=== PATIENT | male | born 1975 | race Caucasian/White ===

== ENCOUNTER 2021-09-19 09:49 | Inpatient (IN) | payer BC, SELFPAY ==
[2021-09-19] VITALS (11 sets, daily range): BP systolic 114–151; BP diastolic 67–87; PULSE 84–107; RESP 14–20; TEMP 36.1–37.3; O2SAT 95–99; BMI 24.4
--- NOTE | ~2021-09-19 | CT_ITS ---
EXAMINATION: CT ABDOMEN AND PELVIS WITH CONTRAST CLINICAL INFORMATION: Right lower quadrant pain COMPARISON: None TECHNIQUE: Multidetector volumetric images were obtained from the superior aspect of the liver through the pubic symphysis following administration 85 mL of Omnipaque 350 intravenous contrast. Sagittal and coronal reformatted images were obtained on the technologist's workstation. Oral contrast: No This CT examination was performed using dose optimization techniques as appropriate, variously including the following: *Automated exposure control *Adjustment of mA and/or kV according to patient size (this includes techniques or standardized protocols for targeted exams where dose is matched to indication/reason for exam; i.e. extremities or head) *Use of iterative reconstruction technique DLP: 955 mGy-cm FINDINGS: LUNG BASES: The visualized lung bases are unremarkable. LIVER, GALLBLADDER, AND BILIARY TREE: The liver is normal in size, shape, and attenuation. No focal hepatic lesion or biliary ductal dilatation is present. The gallbladder is unremarkable with no evidence of radiopaque gallstones, gallbladder wall thickening, or obvious pericholecystic inflammatory changes. PANCREAS: Unremarkable. SPLEEN: Unremarkable. ADRENAL GLANDS: Unremarkable. KIDNEYS AND URETERS: The kidneys are normal in size, shape, and attenuation. No hydronephrosis, hydroureter, or calculi seen. No perinephric stranding. BLADDER: Unremarkable. GASTROINTESTINAL TRACT: The stomach and proximal small bowel are normal in caliber. There is mild wall thickening of the terminal ileum. The appendix is enlarged measuring up to 1.2 cm. There is wall thickening of the appendix and surrounding inflammatory changes. No fluid collection/abscess. The colon is normal in caliber. Colonic diverticulosis is noted. ABDOMINAL WALL: Small fat-containing umbilical hernia. LYMPH NODES: Multiple right lower quadrant mesenteric lymph nodes. VASCULAR: Unremarkable. PELVIC VISCERA: Unremarkable. OSSEOUS STRUCTURES: Unremarkable. CT/CT abdomen pelvis w con IMPRESSION: Acute appendicitis. No fluid collections/abscesses. Fleischner guidelines were followed. Discussed with HODAN Duggan at 1:45pm on 09/19/21.
--- NOTE | 2021-09-19 11:09 | ED_ITS ---
HPI - General Adult General Chief complaint: Abdominal Pain Stated complaint: abd pain Time Seen by Provider: 09/19/21 11:09 Source: patient Mode of arrival: ambulatory Limitations: no limitations History of Present Illness HPI narrative: 46-year-old healthy male is here today for complaining of right lower quadrant pain and tenderness. Patient reports that he had this pain for almost a year on and off. Usually he reports that he has the pain in the right lower quadrant every couple months for a day or 2 and the pain goes away. There is no nausea, vomiting. Associated symptoms are to constipation reason and straining. No diarrhea. Patient denies any dysphagia, right dyspepsia or odynophagia. Denies any melena, hematochezia, unintentional weight loss or ribbon like stools. Patient denies any family history of IBS or IBD. Patient denies any abdominal surgeries. States that he went to urgent care this morning and urine test showed blood. Patient denies any urinary pain, burning. No fever or chills. Pain does not radiate. Patient has no flank pain. Patient denies any CP, PND, presyncope, syncope, palpitations, SOB with or without exertion. Patient denies any other GI or cardiac concerning symptoms. Onset (ago): day(s) (2) Location: abdomen Radiation: non-radiation Severity: moderate Severity scale (1-10): 9 Quality: sharp Pain Consistency: intermittent Relieving factors: none Associated symptoms: denies other symptoms Treatments prior to arrival: none Related Data Home Medications Medication Instructions Recorded Confirmed No Known Home Meds 09/19/21 09/19/21 Allergies Allergy/AdvReac Type Severity Reaction Status Date / Time No Known Allergies Allergy Unverified 03/20/20 18:19 Review of Systems Review of Systems: Constitutional : No Weight loss, No Fever, No Chills, No Night Sweats, No Fatigue, No Malaise ENT/Mouth : No Hearing loss, No Ear Pain, No Nasal Congestion, No Sinus Pain, No Hoarseness, No sore throat, No Rhinorrhea, No Swallowing Difficulty Eyes: No Eye Pain, No Swelling, No Redness, No Foreign Body, No Discharge, No Vision Changes Cardiovascular : No Chest Pain, No SOB, No Dyspnea on Exertion, No Orthopnea, No Edema, No Palpitations Respiratory : No Cough, No Sputum, No Wheezing, No Smoke Exposure, No Dyspnea Gastrointestinal : No Nausea, No Vomiting, No Diarrhea, Constipation, RLQ abdominal Pain, No Hematochezia, No Melena Genitourinary : no irregular bleeding, No Dysuria, No Urinary Frequency, No Hematuria, No Urinary Incontinence, No Urgency, No Flank Pain, No Urinary Flow Changes, No Hesitancy Musculoskeletal : No joint pain, No Myalgias, No Joint Swelling Skin : No Skin Lesions, No rash Neuro : No Weakness, No Numbness, No Paresthesias, No Loss of Consciousness, No Dizziness, No Headache Psych : No Anxiety/Panic, No Depression, No SI/HI/AH/VH, No Social Issues, Yes all other systems are reviewed and are negative [facility] Past Medical History Medical History No known health problems Social History Social History Advance Directives: Yes Advance Directives Information Provided: Yes Advance Directives on File: No Physical Exam ED Vital Signs: Vital Signs - 24 hr 09/19/21 09:53 09/19/21 11:13 09/19/21 11:55 Temperature 98.6 F Pulse Rate 107 H 96 Respiratory Rate 20 14 14 Blood Pressure 151/86 H 128/83 Pulse Oximetry 96 98 BMI result Body Mass Index 24.4 Const General: cooperative, healthy appearing, alert, awake, Physically active and in distress Nutritional Appearance: average body habitus and well nourished Orientation/consciousness: patient oriented x3 Limitations: no limitations HENMT Head: Yes normal to inspection, Yes normocephalic and Yes atraumatic Mouth: Normal oral and palatal mucosa present, tongue normal and oropharynx normal Neck Neck: Yes normal visual inspection, Yes full ROM and Yes no lymphadenopathy Thyroid: Thyroid normal Resp Effort & Inspection: normal respiratory effort and able to speak in complete sentences Auscultation: clear to auscultation bilaterally Cardio Rate: regular rate Rhythm: regular rhythm Heart sounds: S1 normal heart sound present, S2 normal heart sound present, no gallops and no murmurs Peripheral pulses: Peripheral pulses 2+ throughout GI Inspection: Yes normal to inspection and No distended Palpation (GI): Soft to palpation, Tenderness to palpation present (GI) (RLQ) and Guarding due to palpation present (GI) (RLQ) Percussion: Yes normal to percussion (Tenderness to RLQ) Auscultation: Hyperactive bowel sounds present Rectal Exam - Male: Yes deferred General: Yes no CVA tenderness Back/Spine/Pelvis Back: no CVA tenderness Cervical Spine: normal cervical lordosis Thoracic/Lumbar Spine: thoracic and lumbar spine normal to inspection Neuro General: patient oriented x3 Psych Appearance: grossly normal Speech and movement: Normal speech and movement present Affect: normal affect Attitude: cooperative Thought process: Normal thought process present Thought content: Normal thought content present Insight: Good insight present (Psych) Course Course Course Narrative: 46-year-old male is here today for right lower quadrant pain. Patient went to urgent care and was told that he had blood in his urine. Patient denies any urinary symptoms. Denies any flank pain. No nausea vomiting. Right lower quadrant pain and is persistent and getting worse to right lower quadrant. Patient reports that he had this pain on and off for almost a year. Her patient states that usually the pain goes away after a day or 2. Patient reports that symptom associated with his pain is constipation, hard stools without any esteban jackie, hematochezia, unintentional weight loss or ribbon like stools. Patient denies any dyspepsia, dysphagia. Right lower quadrant tenderness. Will do is CBC, CMP, urinalysis is. Will order CT scan with IV contrast. Differentials are appendicitis, colitis, diverticulitis, severe constipation. Will give him morphine for comfort. Patient denies any nausea. Discussed with patient proposed treatment. Patient is agreeable. Reevaluation(s) Reevaluation #1: WBC 13.1, normal H&H, normal liver enzymes, mildly elevated total bilirubin, patient continues to have right lower quadrant pain, tenderness. Will order additional morphine 4 mg. Patient awaiting to go to CT scan. Awaiting urine sample. Reevaluation #2: Spoke with radiologist at [facility]. Patient has acute appendicitis without any fluid collection or abscesses. Message placed to on-call surgeon Dr. Muse patient will be admitted to surgery. Patient continues with pain 2nd dose of morphine given to patient. Will give him 2 g of ceftriaxone for IV. Reevaluation #3: Surgeon is here to see the patient, calling the OR team. Patient will go to surgery Medical Decision Making Lab Data Result diagrams: 09/19/21 11:47 09/19/21 11:47 Labs: Lab Results 09/19/21 09/19/21 09/19/21 Range/Units 11:47 11:47 13:23 WBC 13.1 H (4.8-10.8) X10*3/uL RBC 5.11 (4.60-5.80) X10*6/uL Hgb 15.5 (14.0-18.0) g/dl Hct 45.3 (42.0-52.0) % MCV 88.6 (80.0-98.0) fL MCH 30.3 (27.0-33.0) pg MCHC 34.2 (31.0-36.0) g/dl RDW 12.8 (11.0-16.0) % Plt Count 267 (160-400) X10*3/uL MPV 9.1 L (9.4-12.4) fL Immature Gran % (Auto) 0.3 (0.0-0.4) % Neut % (Auto) 81.3 H (45-73) % Lymph % (Auto) 10.6 L (20-40) % [place] % (Auto) 7.4 (2-11) % Eos % (Auto) 0.2 (0-4) % Baso % (Auto) 0.2 (0-2) % Lymph # (Auto) 1.4 (1.2-4.9) X10*3/uL [place] # (Auto) 1.0 (0.1-1.2) X10*3/uL Eos # (Auto) 0.0 (0.0-0.4) X10*3/uL Baso # (Auto) 0.0 (0.0-0.2) X10*3/uL Abs Immat Gran (auto) 0.04 H (0.00-0.03) X10*3/uL Absolute Neuts (auto) 10.7 H (2.0-8.3) x10*3/uL Absolute Nucleated RBC 0.000 (0.0-0.012) X10*3/uL Nucleated RBC % (auto) 0.0 (0.0-0.2) /100WBC Sodium 138 (135-145) mmol/L Potassium 3.9 (3.3-5.1) mmol/L Chloride 101 (96-108) mmol/L Carbon Dioxide 26 (22-29) mmol/L Anion Gap 15 (12-20) BUN 12 (9-16) mg/dL Creatinine 1.00 (0.5-1.4) mg/dL Estim Creat Clear Calc 99.3 Estimated GFR > 60 Random Glucose 110 (60-115) mg/dL Calcium 9.8 (8.4-10.2) mg/dL Total Bilirubin 1.6 H (0.0-1.0) mg/dL AST 14 (5-37) U/L ALT 14 (0-40) U/L Alkaline Phosphatase 53 (39-117) U/L Total Protein 6.6 (6.5-8.0) g/dL Albumin 4.3 (3.5-5.0) g/dL Urine Color YELLOW Urine Appearance CLEAR Urine pH 5.5 (5.0-8.0) Ur Specific [place] 1.015 (1.005-1.025) Urine Protein TRACE (NEG-TRACE) MG/DL Urine Glucose (UA) NEG (NEG) MG/DL Urine Ketones 15 (NEG) MG/DL Urine Blood TRACE (NEG) Urine Nitrite NEG (NEG) Ur Leukocyte Esterase NEG (NEG) Urine RBC 1-4 (0) /HPF Urine WBC 0 (0-4) /HPF Ur Squamous Epith Cells 1+ /LPF Urine Bacteria NONE /LPF Urine Mucus TRACE /LPF Imaging Data CT scan - abdomen: Attestation: I personally reviewed and interpreted this imaging study as follows: Radiologist's impression: FINDINGS: LUNG BASES: The visualized lung bases are unremarkable.? LIVER, GALLBLADDER, AND BILIARY TREE: The liver is normal in size, shape, and attenuation. No focal hepatic lesion or biliary ductal dilatation is present. The gallbladder is unremarkable with no evidence of radiopaque gallstones, gallbladder wall thickening, or obvious pericholecystic inflammatory changes.? PANCREAS: Unremarkable.? SPLEEN: Unremarkable.? ADRENAL GLANDS: Unremarkable.? KIDNEYS AND URETERS: The kidneys are normal in size, shape, and attenuation. No hydronephrosis, hydroureter, or calculi seen. No perinephric stranding. ? BLADDER: Unremarkable.? GASTROINTESTINAL TRACT: The stomach and proximal small bowel are normal in caliber. There is mild wall thickening of the terminal ileum. The appendix is enlarged measuring up to 1.2 cm. There is wall thickening of the appendix and surrounding inflammatory changes. No fluid collection/abscess. The colon is normal in caliber. Colonic diverticulosis is noted.? ABDOMINAL WALL: Small fat-containing umbilical hernia.? LYMPH NODES: Multiple right lower quadrant mesenteric lymph nodes. VASCULAR: Unremarkable. PELVIC VISCERA: Unremarkable.? OSSEOUS STRUCTURES: Unremarkable.? Discharge Plan Discharge Clinical Impression: Appendicitis Patient Disposition: Admitted As Inpatient Interventions: Admission Worksheet (ED) Last Done: 09/19/21 15:22 Discharge Date/Time: 09/19/21 16:01
[2021-09-19 11:54] LABS: MANUAL DIFF FLAG NO
[2021-09-19] MEDS: Morphine Sulfate 4 MG/ML CARTRIDGE IVPUSH (11:55)
[2021-09-19] MEDS: 0.9 % Sodium Chloride 1,000 ML 999 ML IV (11:55)
[2021-09-19] MEDS: ondansetron HCL 4 MG/2 ML VIAL IVPUSH ×2 (11:55→17:48)
[2021-09-19] MEDS: Morphine Sulfate 2 MG/ML CARTRIDGE IVPUSH (11:55)
[2021-09-19 11:56] LABS: Basophils Percent Auto 0.2 % (0-2); Eosinophils Percent Auto 0.2 % (0-4); Hematocrit 45.3 % (42.0-52.0); Hemoglobin 15.5 g/dl (14.0-18.0); Imm Gran Abs Auto 0.04 X10*3/uL (0.00-0.03); Imm Gran Pct Auto 0.3 % (0.0-0.4); Lymphocytes Absolute Auto 1.4 X10*3/uL (1.2-4.9); Lymphocytes Percent Auto 10.6 % (20-40); Mean Corpuscular HGB Conc 34.2 g/dl (31.0-36.0); Mean Corpuscular Hemoglobin 30.3 pg (27.0-33.0); Mean Corpuscular Volume 88.6 fL (80.0-98.0); Mean Platelet Volume 9.1 fL (9.4-12.4); Monocytes Percent Auto 7.4 % (2-11); Neutrophils Absolute Auto 10.7 x10*3/uL (2.0-8.3); Neutrophils Percent Auto 81.3 % (45-73); Platelet Count 267 X10*3/uL (160-400); Red Blood Count 5.11 X10*6/uL (4.60-5.80); Red Cell Distribution Width 12.8 % (11.0-16.0); White Blood Count 13.1 X10*3/uL (4.8-10.8)
[2021-09-19 12:16] LABS: Alanine Aminotransferase 14 U/L (0-40); Albumin Level 4.3 g/dL (3.5-5.0); Alkaline Phosphatase 53 U/L (39-117); Anion Gap 15 (12-20); Aspartate Amino Transferase 14 U/L (5-37); Bilirubin Total 1.6 mg/dL (0.0-1.0); Blood Urea Nitrogen 12 mg/dL (9-16); Calcium 9.8 mg/dL (8.4-10.2); Carbon Dioxide 26 mmol/L (22-29); Chloride 101 mmol/L (96-108); Creatinine Clr Calc Pharmacy 99.3; Estimated Glomerular Filt Rate > 60; Glucose Random 110 mg/dL (60-115); Potassium 3.9 mmol/L (3.3-5.1); Sodium 138 mmol/L (135-145); Total Protein 6.6 g/dL (6.5-8.0)
[2021-09-19] MEDS: iohexoL 350 MG/ML 100 ML INFUS..BTL IV (13:21)
[2021-09-19 13:32] LABS: Appearance Urine CLEAR; Color Urine YELLOW; Glucose Urine UA NEG (NEG); Leukocyte Esterase Urine NEG (NEG); Nitrite Urine NEG (NEG); PH 5.5 (5.0-8.0); Specific Gravity - Urine 1.015 (1.005-1.025); UACC Culture Trigger NO; Urine Blood TRACE (NEG); Urine Ketones 15 MG/DL (NEG); Urine Protein TRACE MG/DL (NEG-TRACE)
[2021-09-19 13:40] LABS: Squamous Epithelial Cell Urine 1+ /LPF; WBC Urine 0 /HPF (0-4)
[2021-09-19 13:41] LABS: Mucus Urine TRACE /LPF
[2021-09-19] MEDS: cefTRIAXone sodium 2 GM in 0.9 % Sodium Chloride 50 ML IV (14:13)
--- NOTE | 2021-09-19 14:28 | P.HPGS_ITS ---
History of Present Illness History of Present Illness Date of Service: 09/19/21 Chief complaint: abd pain Narrative: Javi Robles is a 46 year old male who comes in with a 1-2 day history of pain settling into his right lower quadrant area. He has been having pain on and off for the last months to may be a year where the abdominal pain start soft generalized maybe in the left upper quadrant umbilical area then and up in the right lower quadrant but it gets better. This time it did not get better. The pain worsened and so he came to the ER. He denies any nausea or vomiting any fevers or chills. No unusual contacts no strain G diet. Denies any other lower GI symptoms. Here workup revealed elevated white count and CT scan consistent with acute dependence side is. Review of Systems Review of Systems: Yes all other systems are reviewed and are negative PMFSH Past Medical History Medical History No known health problems Social History Social History Advance Directives: Yes Advance Directives Information Provided: Yes Advance Directives on File: No Meds Allergies Allergy/AdvReac Type Severity Reaction Status Date / Time No Known Allergies Allergy Unverified 03/20/20 18:19 Active Medications: Current Medications Ceftriaxone Sodium 2 gm/ (Sodium Chloride) 50 mls @ 100 mls/hr IV ONCE ONE Stop: 09/19/21 14:31 Last Admin: 09/19/21 14:13 Dose: 100 mls/hr Documented by: Pharmacy Consult (Consult Rx Perform Med Rec) 1 each MISCELLANE ONCE PRN PRN Reason: Consult order Physical Exam Vital Signs: Vital Signs: Last Vital Signs Temp 98.6 F 09/19/21 09:53 Pulse 96 09/19/21 11:13 Resp 14 09/19/21 11:55 BP 128/83 09/19/21 11:13 Pulse Ox 98 09/19/21 11:13 BMI result Body Mass Index 24.4 Const: General: cooperative, healthy appearing and comfortable Orientation /consciousness: oriented to person, oriented to place and oriented to time HENMT: Head: Yes normal to inspection Resp: Effort & Inspection: normal respiratory effort Auscultation: clear to auscultation bilaterally Cardio: Rate: regular rate Rhythm: regular rhythm Heart sounds: S1 normal heart sound present and S2 normal heart sound present GI: Other: abdomen soft nondistended small umbilical hernia, tender rlq with guarding Skin: Lesions: no lesions Rashes: no rashes Neuro: General: oriented to person, oriented to place and oriented to time Cranial nerves: Yes CN's II-XII intact bilaterally Psych: Appearance: grossly normal Mental Status: mental status grossly normal Affect: normal affect Results Results Labs: Short CBC 09/19/21 Range/Units 11:47 WBC 13.1 H (4.8-10.8) X10*3/uL Hgb 15.5 (14.0-18.0) g/dl Hct 45.3 (42.0-52.0) % Plt Count 267 (160-400) X10*3/uL BMP 09/19/21 11:47 Sodium 138 Potassium 3.9 Chloride 101 Carbon Dioxide 26 BUN 12 Creatinine 1.00 Calcium 9.8 Liver Function 09/19/21 Range/Units 11:47 Total Bilirubin 1.6 H (0.0-1.0) mg/dL AST 14 (5-37) U/L ALT 14 (0-40) U/L Alkaline Phosphatase 53 (39-117) U/L Albumin 4.3 (3.5-5.0) g/dL Urine 09/19/21 Range/Units 13:23 Urine Color YELLOW Urine Appearance CLEAR Urine pH 5.5 (5.0-8.0) Ur Specific [place] 1.015 (1.005-1.025) Urine Protein TRACE (NEG-TRACE) MG/DL Urine Glucose (UA) NEG (NEG) MG/DL Abdomen CT scan report/results: report reviewed and image reviewed Assessment and Plan (1) Acute appendicitis: Status: Acute Plan 46-year-old male with acute appendicitis - plan is to carry out laparoscopic appendecotmy - CT scan history blood work and physical exam consistent with this diagnosis. Risks and benefits were discussed with the patient including but not limited to bleeding infection possible open procedure possible bowel injury any wishes to proceed. Keep NPO IV fluids IV antibiotics Quality Stroke Does the patient have a stroke diagnosis?: No VTE Prior VTE?: No VTE Risk Level:: Surgical - low VTE Device Contraindication: N/A - Device Ordered VTE Drug Contraindication: Treatment Not Indicated Procedures Date of Service Date of Service: 09/19/21
--- NOTE | 2021-09-19 14:43 | PHA.MEDREC ---
Pharmacy Consult ? Medication Reconciliation Pharmacy has completed the medication reconciliation. Patient takes no medications at home. Rosa Isela Buck, EmaD
--- NOTE | 2021-09-19 14:46 | P.CONAN_ITS ---
COUNT INCLUDES THE [facility] Active Problems Active Problems: All Active Problems (Updated 09/19/21 @ 14:37 by Arianna Muse MD) Acute appendicitis (Acute) Past Medical History Medical History No known health problems Functional capacity: independent ambulation Family History Family history of problems with anesthesia: No Surgical History History of Problems with Anesthesia: No Social History Social History Advance Directives: Yes Advance Directives Information Provided: Yes Advance Directives on File: No Meds Allergies Allergy/AdvReac Type Severity Reaction Status Date / Time No Known Allergies Allergy Unverified 03/20/20 18:19 Active Medications: Current Medications Pharmacy Consult (Consult Rx Perform Med Rec) 1 each MISCELLANE ONCE PRN PRN Reason: Consult order Home Medications Medication Instructions Recorded Confirmed Last Taken Type No Known Home Meds 09/19/21 09/19/21 Unknown History Exam Exam Date and Time: September 19, 2021 1446 Height,Weight and Vital Signs: Height 5 ft 11 in Weight 79.379 kg Last Vital Signs Temp 98.6 F 09/19/21 09:53 Pulse 96 09/19/21 11:13 Resp 14 09/19/21 11:55 BP 128/83 09/19/21 11:13 Pulse Ox 98 09/19/21 11:13 Pertinent Lab Results Pertinent Lab Results: Laboratory Tests 09/19/21 09/19/21 09/19/21 11:47 11:47 13:23 WBC 13.1 H RBC 5.11 Hgb 15.5 Hct 45.3 MCV 88.6 MCH 30.3 MCHC 34.2 RDW 12.8 Plt Count 267 MPV 9.1 L Immature Gran % (Auto) 0.3 Neut % (Auto) 81.3 H Lymph % (Auto) 10.6 L [place] % (Auto) 7.4 Eos % (Auto) 0.2 Baso % (Auto) 0.2 Lymph # (Auto) 1.4 [place] # (Auto) 1.0 Eos # (Auto) 0.0 Baso # (Auto) 0.0 Abs Immat Gran (auto) 0.04 H Absolute Neuts (auto) 10.7 H Absolute Nucleated RBC 0.000 Nucleated RBC % (auto) 0.0 Sodium 138 Potassium 3.9 Chloride 101 Carbon Dioxide 26 Anion Gap 15 BUN 12 Creatinine 1.00 Estim Creat Clear Calc 99.3 Estimated GFR > 60 Random Glucose 110 Calcium 9.8 Total Bilirubin 1.6 H AST 14 ALT 14 Alkaline Phosphatase 53 Total Protein 6.6 Albumin 4.3 Urine Color YELLOW Urine Appearance CLEAR Urine pH 5.5 Ur Specific [place] 1.015 Urine Protein TRACE Urine Glucose (UA) NEG Urine Ketones 15 Urine Blood TRACE Urine Nitrite NEG Ur Leukocyte Esterase NEG Urine RBC 1-4 Urine WBC 0 Ur Squamous Epith Cells 1+ Urine Bacteria NONE Urine Mucus TRACE Airway Mallampati Class: II Neck ROM: Full Heart: RRR Lungs: CTA Assessment and Plan Final Anesthetic Review Family History of Problems with Anesthesia: No History of Problems with Anesthesia: No ASA Class: II Final Preanesthetic Review: Meds/Allgs Chart Reviewed, Consent Obtained/Reviewed and Anes Risks/Benef Reviewed Patient Risk: Low Procedure Risk: Low Anesthetic Plan Anesthetic Plan: GA Disposition: Standard PACU
[2021-09-19 15:45] LABS: COVID-19 Test Negative (Negative)
[2021-09-19] MEDS: 0.9 % Sodium Chloride 1,000 ML 100 ML IVCONT (19:38)
[2021-09-19] MEDS: Piperacillin Sodium/Tazobactam 3.375 GM in 0.9 % Sodium Chloride 50 ML IV (19:38)
[2021-09-19] MEDS: oxyCODONE HCl Immed Release 5 MG TABLET PO (21:57)
[2021-09-20] VITALS (8 sets, daily range): BP systolic 127–151; BP diastolic 74–88; PULSE 75–90; RESP 17–18; TEMP 36.3–37.1; O2SAT 95–98
[2021-09-20] MEDS: Piperacillin Sodium/Tazobactam 3.375 GM in 0.9 % Sodium Chloride 50 ML IV ×5 (01:08→22:55)
[2021-09-20] MEDS: Ketorolac Tromethamine 30 MG/ML VIAL IVPUSH (05:17)
[2021-09-20] MEDS: 0.9 % Sodium Chloride 1,000 ML 100 ML IVCONT (05:18)
[2021-09-20 06:21] LABS: MANUAL DIFF FLAG NO
[2021-09-20 06:28] LABS: Basophils Percent Auto 0.1 % (0-2); Hematocrit 38.3 % (42.0-52.0); Hemoglobin 13.1 g/dl (14.0-18.0); Imm Gran Abs Auto 0.04 X10*3/uL (0.00-0.03); Imm Gran Pct Auto 0.4 % (0.0-0.4); Lymphocytes Absolute Auto 1.3 X10*3/uL (1.2-4.9); Lymphocytes Percent Auto 12.1 % (20-40); Mean Corpuscular HGB Conc 34.2 g/dl (31.0-36.0); Mean Corpuscular Hemoglobin 30.5 pg (27.0-33.0); Mean Corpuscular Volume 89.3 fL (80.0-98.0); Mean Platelet Volume 9.5 fL (9.4-12.4); Monocytes Absolute Auto 0.8 X10*3/uL (0.1-1.2); Monocytes Percent Auto 7.2 % (2-11); Neutrophils Absolute Auto 8.6 x10*3/uL (2.0-8.3); Neutrophils Percent Auto 80.2 % (45-73); Platelet Count 262 X10*3/uL (160-400); Red Blood Count 4.29 X10*6/uL (4.60-5.80); Red Cell Distribution Width 12.8 % (11.0-16.0); White Blood Count 10.7 X10*3/uL (4.8-10.8)
--- NOTE | 2021-09-20 09:42 | MHC.CM.PN ---
PT REPORTS HE LIVES WITH HIS S/O AND IS INDEPENDENT WITH CARE PT DENIES USING OF DME OR HOME SERVICES PPT REPORTS HE HAS A HCP NAMING HIS GF, ELLEN, HIS AGENT. COPY REQUESTED PT DOES NOT HAVE A PCP BUT REPORTS HE IS IN THE PROCESS OF GETTING ONE PT REPORTS BEING COVID-19 VACCINATED WITH MODERNA X 3 DCP HOME NO SERVICES S/O TO TRANSPORT
--- NOTE | 2021-09-20 13:39 | P.PNGS_ITS ---
Subjective Subjective Date of Service: 09/20/21 Interval history: feeling well no issues leon po diet - serosang fluid from the russ drain Physical Exam Vital Signs: Vital Signs: Last Vital Signs Temp 98.1 F 09/20/21 07:30 Pulse 81 09/20/21 07:30 Resp 18 09/20/21 07:30 BP 151/81 H 09/20/21 07:30 Pulse Ox 98 09/20/21 07:30 BMI result Body Mass Index 24.4 GI: Other: abdo soft little distended russ drain intact Objective Data Active Medications Fentanyl (Fentanyl Citrate/Pf 100 Mcg/2 Ml Vial) 50 mcg IVPUSH Q5M PRN; Protocol PRN Reason: Pain, Severe (Pain Scale 7-10) Sodium Chloride (Ns) 1,000 mls @ 100 mls/hr IVCONT .Q10H [facility] Last Admin: 09/20/21 05:18 Dose: 100 mls/hr Documented by: JANNETTE Piperacillin Sod/Tazobactam (Sod 3.375 gm/ Sodium Chloride) 50 mls @ 100 mls/hr IV Q6H [facility] Last Admin: 09/20/21 11:56 Dose: 100 mls/hr Documented by: ANDREW Ketorolac Tromethamine (Ketorolac Tromethamine 30 Mg/Ml Vial) 30 mg IVPUSH Q6H PRN PRN Reason: Pain, Mild (Pain Scale 1-3) Stop: 09/24/21 17:44 Last Admin: 09/20/21 05:17 Dose: 30 mg Documented by: JANNETTE Pharmacy Consult (Consult Rx Perform Med Rec) 1 each MISCELLANE ONCE PRN PRN Reason: Consult order Sodium Chloride (0.9 % Sodium Chloride Flush 3 Ml Syringe) 3 ml IVFLUSH QSHIFT [facility] Last Admin: 09/20/21 09:47 Dose: Not Given Documented by: ROMMEL Non-Admin Reason: IV Running Labs CBC & Chem 7: 09/20/21 05:38 09/19/21 11:47 Labs: Laboratory Results - last 24 hr 09/19/21 09/19/21 09/20/21 13:23 15:17 05:38 MCV 89.3 MCH 30.5 MCHC 34.2 RDW 12.8 Plt Count 262 MPV 9.5 Immature Gran % (Auto) 0.4 Neut % (Auto) 80.2 H Lymph % (Auto) 12.1 L [place] % (Auto) 7.2 Eos % (Auto) 0.0 Baso % (Auto) 0.1 Lymph # (Auto) 1.3 [place] # (Auto) 0.8 Eos # (Auto) 0.0 Baso # (Auto) 0.0 Abs Immat Gran (auto) 0.04 H Absolute Neuts (auto) 8.6 H Absolute Nucleated RBC 0.000 Nucleated RBC % (auto) 0.0 Urine RBC 1-4 Urine WBC 0 Ur Squamous Epith Cells 1+ Urine Bacteria NONE Urine Mucus TRACE COVID-19 (NUSRAT) Negative COVID-19 Clin Com See Note Procedures Date of Service Date of Service: 09/20/21 Progress Note: A&P Assessment and plan (1) Acute appendicitis: Status: Acute Assessment and Plan: pod#1 s/p lap appy doing well - his appendix was very inflamed and stuck to the cecum adn ascending colon in a retrocecal fashion. staple line of the appendix on cecum with area of induration - russ drain tucked under and near staple site - no evidence of leak etc and i believe he should do fine but keeping for another day and observing as diet increases is prefered. pt understand and agrees with the plan Fall Risk Details Current Medications: Current Medications Fentanyl (Fentanyl Citrate/Pf 100 Mcg/2 Ml Vial) 50 mcg IVPUSH Q5M PRN; Protocol PRN Reason: Pain, Severe (Pain Scale 7-10) Sodium Chloride (Ns) 1,000 mls @ 100 mls/hr IVCONT .Q10H [facility] Last Admin: 09/20/21 05:18 Dose: 100 mls/hr Documented by: Piperacillin Sod/Tazobactam (Sod 3.375 gm/ Sodium Chloride) 50 mls @ 100 mls/hr IV Q6H [facility] Last Admin: 09/20/21 11:56 Dose: 100 mls/hr Documented by: Ketorolac Tromethamine (Ketorolac Tromethamine 30 Mg/Ml Vial) 30 mg IVPUSH Q6H PRN PRN Reason: Pain, Mild (Pain Scale 1-3) Stop: 09/24/21 17:44 Last Admin: 09/20/21 05:17 Dose: 30 mg Documented by: Pharmacy Consult (Consult Rx Perform Med Rec) 1 each MISCELLANE ONCE PRN PRN Reason: Consult order Sodium Chloride (0.9 % Sodium Chloride Flush 3 Ml Syringe) 3 ml IVFLUSH QSHIFT [facility] Last Admin: 09/20/21 09:47 Dose: Not Given Documented by: Time Spent With Patient Time: Total time spent is greater than 50% in coordination of care (as documented) at patient's floor/unit and/or counseling patient: Time with patient: 15 - 24 minutes Quality Stroke Does the patient have a stroke diagnosis?: No VTE Prior VTE?: No VTE Risk Level:: Surgical - low VTE Device Contraindication: N/A - Device Ordered VTE Drug Contraindication: Treatment Not Indicated
[2021-09-20] MEDS: 0.9 % Sodium Chloride Flush 3 ML SYRINGE IVFLUSH ×2 (17:22→22:55)
[2021-09-20] MEDS: Zolpidem Tartrate 5 MG TABLET PO (22:55)
[2021-09-21] MEDS: Piperacillin Sodium/Tazobactam 3.375 GM in 0.9 % Sodium Chloride 50 ML IV (05:22)
[2021-09-21 06:58] VITALS: BP 156/89; PULSE 100; RESP 18; TEMP 36.3; O2SAT 97
--- NOTE | 2021-09-21 08:09 | P.PNGS_ITS ---
Subjective Subjective Date of Service: 09/21/21 Interval history: feels well tolerating diet good flatus says he feels ready to go home Physical Exam Vital Signs: Vital Signs: Last Vital Signs Temp 97.3 F 09/21/21 06:58 Pulse 100 09/21/21 06:58 Resp 18 09/21/21 06:58 BP 156/89 H 09/21/21 06:58 Pulse Ox 97 09/21/21 06:58 BMI result Body Mass Index 24.4 Const: General: comfortable and no acute distress Resp: Effort & Inspection: normal respiratory effort Cardio: Rate: regular rate GI: Other: dressings dry, ROB drain -scanty serosanguinous output Palpation (GI): Soft to palpation, not firm and no guarding Objective Data Active Medications Fentanyl (Fentanyl Citrate/Pf 100 Mcg/2 Ml Vial) 50 mcg IVPUSH Q5M PRN; P rotocol PRN Reason: Pain, Severe (Pain Scale 7-10) Piperacillin Sod/Tazobactam (Sod 3.375 gm/ Sodium Chloride) 50 mls @ 100 mls/hr IV Q6H [facility] Last Infusion: 09/21/21 05:59 Dose: 0 mls/hr Documented by: JANNETTE Ketorolac Tromethamine (Ketorolac Tromethamine 30 Mg/Ml Vial) 30 mg IVPUSH Q6H PRN PRN Reason: Pain, Mild (Pain Scale 1-3) Stop: 09/24/21 17:44 Last Admin: 09/20/21 05:17 Dose: 30 mg Documented by: JANNETTE Pharmacy Consult (Consult Rx Perform Med Rec) 1 each MISCELLANE ONCE PRN PRN Reason: Consult order Sodium Chloride (0.9 % Sodium Chloride Flush 3 Ml Syringe) 3 ml IVFLUSH QSHIFT [facility] Last Admin: 09/20/21 22:55 Dose: 3 ml Documented by: JANNETTE Zolpidem Tartrate (Zolpidem Tartrate 5 Mg Tablet) 5 mg PO BEDTIME [facility] Last Admin: 09/20/21 22:55 Dose: 5 mg Documented by: JANNETTE Labs CBC & Chem 7: 09/20/21 05:38 09/19/21 11:47 Procedures Date of Service Date of Service: 09/21/21 Progress Note: A&P Assessment and plan (1) Acute appendicitis: Status: Acute Assessment and Plan: doing very well postop abd soft and benign good GI function ok to dc home with ROB drain dc instructions explained will see in office for ffup, remove drain Fall Risk Details Current Medications: Current Medications Fentanyl (Fentanyl Citrate/Pf 100 Mcg/2 Ml Vial) 50 mcg IVPUSH Q5M PRN; Protocol PRN Reason: Pain, Severe (Pain Scale 7-10) Piperacillin Sod/Tazobactam (Sod 3.375 gm/ Sodium Chloride) 50 mls @ 100 mls/hr IV Q6H [facility] Last Infusion: 09/21/21 05:59 Dose: Infused Documented by: Ketorolac Tromethamine (Ketorolac Tromethamine 30 Mg/Ml Vial) 30 mg IVPUSH Q6H PRN PRN Reason: Pain, Mild (Pain Scale 1-3) Stop: 09/24/21 17:44 Last Admin: 09/20/21 05:17 Dose: 30 mg Documented by: Pharmacy Consult (Consult Rx Perform Med Rec) 1 each MISCELLANE ONCE PRN PRN Reason: Consult order Sodium Chloride (0.9 % Sodium Chloride Flush 3 Ml Syringe) 3 ml IVFLUSH QSHIFT [facility] Last Admin: 09/20/21 22:55 Dose: 3 ml Documented by: Zolpidem Tartrate (Zolpidem Tartrate 5 Mg Tablet) 5 mg PO BEDTIME [facility] Last Admin: 09/20/21 22:55 Dose: 5 mg Documented by: Time Spent With Patient Time: Total time spent is greater than 50% in coordination of care (as documented) at patient's floor/unit and/or counseling patient: Time with patient: 15 - 24 minutes Quality Stroke Does the patient have a stroke diagnosis?: No VTE Prior VTE?: No VTE Risk Level:: Surgical - low VTE Device Contraindication: N/A - Device Ordered VTE Drug Contraindication: Treatment Not Indicated
[2021-09-21] MEDS: 0.9 % Sodium Chloride Flush 3 ML SYRINGE IVFLUSH (08:39)
--- NOTE | 2021-09-21 11:09 | P.DS_ITS ---
DS: Providers Provider Date of Service: 09/21/21 Date of admission: 09/19/21 14:26 Primary care physician: Casi Physician Attending physician on admission: Arianna Muse Attending physician on discharge: Bravo Berkowitz DS: Diagnosis Discharge Diagnosis (1) Acute appendicitis: Status: Acute DS: Summary Hospital Course Hospital Course: BRIEF HPI: Javi Robles is a 46 year old male who comes in with a 1-2 day history of pain settling into his right lower quadrant area. He has been having pain on and off for the last months to may be a year where the abdominal pain start soft generalized maybe in the left upper quadrant umbilical area then and up in the right lower quadrant but it gets better. This time it did not get better. The pain worsened and so he came to the ER. He denies any nausea or vomiting any fevers or chills. No unusual contacts. Denies any other lower GI symptoms. Workup revealed elevated white count and CT scan consistent with acute appendicitis. HOSPITAL COURSE: He was admitted to the surgical service for further treatment of acute appendicitis. It was recommended to proceed with laparoscopic appendecotmy. He was kept NPO, on IV fluids and IV antibiotics. On 09/19/21, a laparoscopic appendectomy was performed by Dr. Muse without complication. The appendix was very inflamed and stuck to the cecum and ascending colon.?A ROB drain was left in place at the staple line. The patient tolerated the procedure well and was admitted for observation. He had an uncomplicated recovery course. On POD #1, he felt well. He was tolerating a solid diet without N/V, his pain was controlled. He was OOB without difficulty. His abdomen was benign with clean/intact dressings and appropriate post op tenderness. The ROB drain had serosanguineous output. Given the inflammat ory changes on the cecum at the staple line, he was kept one more day for observation. He continued to do well post op without any evidence of staple line leak. He felt ready for discharge. He was discharged to home on 09/21/21 in stable condition. He is to follow up with Dr. Berkowitz in office in 1 week. He was discharged to home with the ROB drain in place. Status at Discharge Functional status at discharge: independent ambulation Overall status at discharge: patient is progressing back to baseline Time Spent with Patient Time attestation: Total time spent providing and/or coordinating discharge services: Discharge coordination time: Greater than 30 minutes Quality: Stroke Does the patient have a stroke diagnosis?: No Physical Exam Vital Signs: Vital Signs: Last Vital Signs Temp 97.3 F 09/21/21 06:58 Pulse 100 09/21/21 06:58 Resp 18 09/21/21 06:58 BP 156/89 H 09/21/21 06:58 Pulse Ox 97 09/21/21 06:58 BMI result Body Mass Index 24.4 Const: General: comfortable and no acute distress Orientation/consciousness: patient oriented x3 Resp: Effort & Inspection: normal respiratory effort GI: Other: ROB with serosanguineous drainage Inspection: No distended and Yes incision (dressings c/d/i) Palpation (GI): Soft to palpation, Tenderness to palpation present (GI) (mild, incisional), no guarding and not rigid Skin: General skin exam: no rashes or lesions noted Neuro: General: patient oriented x3 DS: Data Data Completed and Pending Pending studies at discharge: Pending at discharge 09/19/21 16:50 Surgical [PTH] Routine Discharge Plan Discharge Patient Disposition: Home, Self-Care Discharge Diagnosis: acute appendicitis Referrals: Bravo Berkowitz MD [Physician] - 1 Week Physician,None [Primary Care Provider] - 1 Week Discharge Medications: New ibuprofen 600 mg tablet 600 mg PO Q6H PRN (Reason: pain) Qty: 30 0RF oxycodone-acetaminophen [Percocet] 5-325 mg tablet 1 tab PO Q4-6H PRN (Reason: pain, severe) Qty: 30 0RF Discharge Orders: Discharge Order (Routine); Ordered 09/21/21 Ordered By: Betty Ledbetter Diet: advance to usual diet Activity on Discharge: No heavy lifting Stand Alone Forms: Patient Portal Discharge page Activity Restrictions/Additional Instructions: If the incision area is tender, you may apply an ice pack for short intervals (No more than 20 minutes on, followed by at least 20 minutes off). Do not apply heat. Do not use creams, lotions, or topical antibiotics unless instructed to do so by your surgeon. These can cause infection or allergic reaction. OK to shower Okay to change dressings with Band-Aids No lifting more than 20 lb No strenuous activities Call the office for follow-up next week - with Dr. Berkowitz [phone] Call Your Doctor If: -Your temperature exceeds 101.5? F -You experience excessive pain or swelling -You have an unexpected reaction to medication -You have excessive bleeding -You experience continued vomiting/nausea -Your incision begins to separate -Your incision shows signs of infection such as increased redness, swelling, excessive pain, drainage (light blood or clear fluid is normal) or heat Care Plan Goals: control pain no lifting Health Concerns: postop pain Plan of Treatment: oral pain meds ffup in office to remove ROB rain Assessment: doing well postop Discharge Date/Time: 09/21/21 12:07
--- NOTE | 2021-09-21 13:02 | HO.POSTANES ---
Post Anesthesia Evaluation Post Anesthesia Evaluation Vital Signs: Vital Signs Temp Pulse Resp BP Pulse Ox 09/21/21 06:58 97.3 F 100 18 156/89 H 97 Anesthesia: General Endotracheal-GETA Mental Status: Awake Pain Control: Satisfactory Nausea/Vomiting: None Hydration: Adequate Anesthesia-Related Issues: No Anes. Related Issues
[2021-09-22 08:34] LABS: VBG Base Excess 2.3 mmol/L; VBG HCO3 26 mmol/L (22-26); VBG pCO2 38 mmHg; VBG pH 7.44 (7.32-7.43); VBG pO2 41 mmHg
--- NOTE | 2021-10-01 04:00 | OP_ITS ---
SURGEON: Arianna Muse MD INDICATIONS: Patient is a 46-year-old male who presented to the emergency room with right abdominal pain, elevate white count. CT scan showing findings consistent with acute appendicitis. PREOPERATIVE DIAGNOSIS: Acute appendicitis. POSTOPERATIVE DIAGNOSIS: Acute appendicitis. PROCEDURE PERFORMED: Laparoscopic appendectomy. ESTIMATED BLOOD LOSS: COMPLICATIONS: ANESTHESIA: ASSISTANTS: SPECIMENS: INTRAOPERATIVE FINDINGS: Acute appendicitis. DESCRIPTION OF PROCEDURE: Patient was brought to the operating room. Under Anesthesia guidance, he was intubated. He had compression stockings placed before and after received preoperative antibiotics. His abdomen was prepped and draped in standard surgical fashion. An infraumbilical incision was created after numbing up the area with 0.25% Marcaine with epinephrine. Dissection was carried down to the anterior abdominal wall fascia, which was grasped with Oralia and transected. [address] [place] trocar introduced. Pneumoperitoneum established with 15 mmHg. Two 5 mm ports were then placed under direct visualization, one in the suprapubic area and one in the left lower quadrant using local. Patient was positioned left side down and then the cecal area of the appendix was identified and turned out to be more retrocecal. It was carefully dissected out by mobilizing the cecal area laterally and eventually using the LigaSure to come across the mesenteric vein down to the base of the appendix where there was an inflammation still on the cecum. The Endo JATIN stapler was fired across here. Then the appendix removed from the peritoneal cavity. The area was suctioned and irrigated and carefully examined. The staple line looked fine, intact, and draining catheter in place and secured. At the end of the case, all sponge, instrument, needle counts were correct. Estimated blood loss was about 20 cc. Blood culture removed under direct visualization. Pursestring suture at the umbilicus was approximated, Monocryl interrupted subcuticular was used to approximate all the skin edges and Steri-Strips were placed. The drain coming out of the suprapubic area was secured with a suture. Specimen sent was the appendix. The patient returned stable to the recovery room. Arianna Muse MD SR/HIRAL / [id number]
== END 2021-09-21 12:07 | disposition home or self-care (01) | DRG 225 ==
LOC: HO.ED 15:35 → HO.S3 15:50
PROVIDERS: Nurse Practitioner Family; Admitting Provider Surgery; Emergency Provider Emergency Medicine Emergency Medical Services; Visit Provider Surgery
PROC: 0DTJ4ZZ Resection of Appendix, Percutaneous Endoscopic Approach (ICD-10-PCS; CPT 44970; principal; 2021-09-19 15:00)
DX: K35.80 Unspecified acute appendicitis (principal); Z20.822 Contact with and (suspected) exposure to COVID-19
CPT/HCPCS: 36415; 74177; 80053; 81001; 82803; 85025; 87635; 88304; 99024; 99285; J0131; J0696; J1100; J1885; J2250; J2270; J2405; J2543; J3010; Q9967

== ENCOUNTER → 2021-10-01 10:39 | Outpatient (BNVA) | payer BC, SELFPAY | PROVIDERS: Visit Provider Surgery | DX: Z13.89 Encounter for screening for other disorder (principal) ==

== ENCOUNTER 2021-11-06 11:34 | Outpatient (REF) | payer BC, SELFPAY ==
--- NOTE | ~2021-11-06 | XR_ITS ---
EXAMINATION: XR CHEST CLINICAL INFORMATION: Abnormal sputum COMPARISON: None TECHNIQUE: 2 views of the chest were obtained. FINDINGS: No significant abnormality is noted involving the heart, lungs, mediastinum, bony thorax or soft tissues. XR/XR chest 2V IMPRESSION: Unremarkable examination.
[2021-11-06 13:42] LABS: TSH reflex Free T4 0.92 uIU/mL (0.32-4.0); Vitamin D 25-OH Total 4.8 ng/mL (>30)
[2021-11-06 14:23] LABS: Vitamin B12 192 pg/mL (200-900)
[2021-11-08 23:51] LABS: TS Negative Control Passed; TS Panel A 0; TS Panel B 1; TS Positive Control Passed; TSpotTB Negative (Negative)
== END 2021-11-06 11:35 | disposition home or self-care (01) ==
LOC: HO.XRAY 11:34
PROVIDERS: PCP Nurse Practitioner Family; Visit Provider Nurse Practitioner Family
DX: R09.3 Abnormal sputum (principal); Z76.89 Persons encountering health services in other specified circumstances; Z13.29 Encounter for screening for other suspected endocrine disorder; Z12.5 Encounter for screening for malignant neoplasm of prostate
CPT/HCPCS: 36415; 71046; 82306; 82607; 82746; 84153; 84443; 86481

== ENCOUNTER 2024-06-23 17:15 | Emergency (ER) | payer BC, SELFPAY ==
[2024-06-23 17:38] VITALS: BP 142/96; PULSE 92; RESP 18; TEMP 36.4; O2SAT 99; BMI 25.8
--- NOTE | 2024-06-23 17:38 | ED_ITS ---
HPI - General Adult General Chief complaint: General Medical Stated complaint: HBP, Nausea and Fatigue Time Seen by Provider: 06/23/24 20:22 Source: patient, RN notes reviewed and old records reviewed Mode of arrival: ambulatory Limitations: no limitations History of Present Illness ED Provider: Jose E MEZA narrative: 49-year-old male presents for evaluation of ?high blood pressure and palpitations. ? Patient reports that just prior to arrival his heart was racing and he ?did not feel right. ? He checked his blood pressure and it was ?220/158. ? He denies any history of high blood pressure and he does not take any medications daily The patient did not have any chest pain. He reports a remote history of anxiety in his unsure if this was similar He denies any fevers, chills, cough, shortness of breath Currently he feels back to his baseline. He has no pain, palpitations or shortness of breath Related Data Previous Rx's ?Medication ?Instructions ?Recorded ibuprofen 600 mg tablet 600 mg PO Q6H PRN pain #30 tabs 09/21/21 cholecalciferol (vitamin D3) 50 50 mcg PO DAILY #90 tabs 11/13/21 mcg (2,000 unit) tablet cyanocobalamin (vitamin B-12) 1,000 mcg PO DAILY #90 caps 11/13/21 1,000 mcg capsule Allergies Allergy/AdvReac Type Severity Reaction Status Date / Time No Known Allergies Allergy Verified 06/23/24 17:39 Review of Systems 2 Constitutional: Constitutional: Denies body ache(s), Denies chills and Denies fever(s) Eyes: Eyes: Denies blurry vision ENT: Denies dysphagia, Denies vertigo and Denies dizziness Cardiovascular: Cardiovascular: Reports chest pain, Reports rapid heart rate, Reports palpitations and Denies dyspnea Respiratory: Respiratory: Denies cough and Denies dyspnea Gastrointestinal: Gastrointestinal: Denies abdominal pain, Denies dysphagia, Denies nausea and Denies vomiting Musculoskeletal: Musculoskeletal: Denies back pain Integumentary/Breasts: Skin/Breast: Denies rash Neurologic: Denies vertigo and Denies dizziness Psychiatric: Psychiatric: Denies anxiety Endocrine: Endocrine: Reports palpitations PMFSH Past Medical History Medical History (Updated 06/24/24 @ 00:00 by Background Daemon) No known health problems Surgical History (Updated 11/09/21 @ 09:53 by MICHAEL Kaplan) Status post laparoscopic appendectomy History of laparoscopic appendectomy Family History Family History Father CVA (cerebral vascular accident) Heart attack Mother No problems noted. Brother No problems noted. Brother No problems noted. Sister No problems noted. Social History Social History Household Members: Spouse Housing: Condominium Do you presently have visiting nurse or other home services: No Unable to assess alcohol history related to: Unknown Patient Tobacco Use Status: Never used Tobacco e-Cigarette/Vaping Use: Never Used Advance Directives Date on File: 09/19/21 service: No Current occupational status: employed Cognitive needs: No Hearing needs: No Vision needs: No Physical Exam ED Vital Signs: Vital Signs - 24 hr 06/23/24 17:38 06/23/24 20:46 06/23/24 20:47 Temperature 97.5 F 97.9 F 97.9 F Pulse Rate 92 69 69 Respiratory Rate 18 16 16 Blood Pressure 142/96 H 136/97 H 136/97 H Pulse Oximetry 99 98 98 Oxygen Delivery Method Room Air Room Air Room Air BMI result Body Mass Index 25.8 Const General: healthy appearing, comfortable, no acute distress, alert and awake Nutritional Appearance: well nourished Orientation/consciousness: patient oriented x3 HENMT Head: Yes normocephalic and Yes atraumatic Eyes Eyelids: Yes eyelids normal Conjunctivae: conjunctivae normal Sclerae: sclerae normal Corneas: corneas normal Pupils: Equal, round and reactive pupils present EOM: EOMs intact bilaterally Neck Neck: Yes full ROM Resp Effort & Inspection: normal respiratory effort, able to speak in complete sentences and not labored Cardio Rate: regular rate Rhythm: regular rhythm GI Inspection: No distended Palpation (GI): Soft to palpation, not firm, nontender, no guarding and not rigid Skin General skin exam: no rashes or lesions noted Neuro General: patient oriented x3 Cranial nerves: Yes Equal, round and reactive pupils present and Yes Bilaterally intact EOM present Cognition (Neuro): normal cognition Extrem Other: Moving all extremities well without any obvious deformities Course Course Course Narrative: This is a Rapid Medical Exam performed in triage by Danielle Marin PA-C. Full HPI, ROS and PE to be performed by primary ED provider. 49yoM w/no sig PMHx presenting to the ED c/o HBP 220/158 at home w/fatigue & nausea. denies hx HTN. +sick contacts.intermittent palpiations. denies V/D, MARSH, CP/SOB PE: 142/96 in triage, ambulating w/steady gait, nontoxic appearing Plan: EKG, labs, viral testing Medical Decision Making Medical Decision Making [facility] Narrative: 49-year-old male presents for evaluation of palpitations. He reports his symptoms started prior to arrival. He does have a history of anxiety. His symptoms have resolved upon my evaluation. The patient was mildly hypertensive, he was not tachycardic. his labs show no significant abnormalities. EKG shows normal sinus rhythm with a rate of 78 beats minute. No ectopy, no arrhythmia. The patient's TSH is within normal limits, he has no risk factors for PE. Given that the patient is asymptomatic with a negative workup he can be discharged at this time. I discussed with the patient is difficult to rule out exactly what happened prior to his presentation to the ER. It was still possible that he may have had an arrhythmia such as paroxysmal AFib or SVT and I recommend he follow up with cardiology for a Holter monitor Differential Diagnosis Differential Diagnoses: The differential diagnosis associated with the presentation includes Anxiety Arrhythmia Palpitations Hypertension Hyperthyroidism Lab Data [facility] Lab Attestation statement: I reviewed the patient's lab results. No leukocytosis or anemia. Normal platelet count. No electrolyte abnormalities. Thyroid studies within normal limits 06/23/24 17:59 06/23/24 17:59 Labs: Lab Results 06/23/24 Range/Units 17:59 WBC 7.8 (4.8-10.8) X10*3/uL RBC 4.82 (4.60-5.80) X10*6/uL Hgb 15.1 (14.0-18.0) g/dl Hct 42.4 (42.0-52.0) % MCV 88.0 (80.0-98.0) fL MCH 31.3 (27.0-33.0) pg MCHC 35.6 (31.0-36.0) g/dl RDW 12.2 (11.0-16.0) % Plt Count 285 (160-400) X10*3/uL MPV 9.0 L (9.4-12.4) fL Immature Gran % (Auto) 0.4 (0.0-0.4) % Neut % (Auto) 79.8 H (45-73) % Lymph % (Auto) 13.1 L (20-40) % Woodward % (Auto) 5.3 (2-11) % Eos % (Auto) 0.6 (0-4) % Baso % (Auto) 0.8 (0-2) % Lymph # (Auto) 1.0 L (1.2-4.9) X10*3/uL Woodward # (Auto) 0.4 (0.1-1.2) X10*3/uL Eos # (Auto) 0.1 (0.0-0.4) X10*3/uL Baso # (Auto) 0.1 (0.0-0.2) X10*3/uL Abs Immat Gran (auto) 0.03 (0.00-0.03) X10*3/uL Absolute Neuts (auto) 6.2 (2.0-8.3) x10*3/uL Absolute Nucleated RBC 0.000 (0.0-0.012) X10*3/uL Nucleated RBC % (auto) 0.0 (0.0-0.2) /100WBC Sodium 139 (135-145) mmol/L Potassium 3.9 (3.3-5.1) mmol/L Chloride 109 H (96-108) mmol/L Carbon Dioxide 23 (22-29) mmol/L Anion Gap 11 L (12-20) BUN 11 (9-16) mg/dL Creatinine 0.87 (0.5-1.4) mg/dL Estim Creat Clear Calc 110.5 Estimated GFR > 60 Random Glucose 103 (60-115) mg/dL Calcium 8.7 D (8.4-10.2) mg/dL Magnesium 2.1 (1.6-2.6) mg/dL Total Bilirubin 0.6 (0.0-1.0) mg/dL Direct Bilirubin 0.2 (0.0-0.5) mg/dL AST 28 (5-37) U/L ALT 27 (0-40) U/L Alkaline Phosphatase 55 (39-117) U/L Troponin I High Sens < 2.7 (<3.5-35.0) ng/L Total Protein 6.6 (6.5-8.0) g/dL Albumin 4.3 (3.5-5.0) g/dL TSH 0.63 (0.32-4.0) uIU/mL Influenza Type A (PCR) NEGATIVE (Negative) Influenza Type B (PCR) NEGATIVE (Negative) RSV RNA Qual (PCR) NEGATIVE (Negative) SARS-CoV-2 RNA (RT-PCR) NEGATIVE (Negative) Independent Interpretation I performed an independent interpretation of an: EKG (As above) Radiology Impression Discussion of test interpretation with radiology: I have reviewed the radiologist's reading. Radiologist Impression: FINDINGS: No significant abnormality is noted involving the heart, lungs, mediastinum, bony thorax or soft tissues. XR/XR chest 2V IMPRESSION: Unremarkable examination. Attestation Attending Attestation: I was personally present and available for consultation in the ED. I have reviewed everything on the chart that is available and agree with the documentation provided by the LETTY including discussion about the assessment, treatment plan and discussion. Based on medical record the care appears appropriate. Tanvir Jacinto MD [facility] Emergency Medicine Discharge Plan Discharge Clinical Impression: Heart palpitations Patient Disposition: Home, Self-Care Instructions: Heart Palpitations (ED) Additional Instructions: Your workup in the ER today was reassuring. This includes your blood work, EKG Your blood pressure was slightly elevated to 142/96, follow-up with your primary doctor If your symptoms persist I recommend that you follow up with the cardiology for a Holter monitor Prescriptions: No Action cholecalciferol (vitamin D3) 50 mcg (2,000 unit) tablet 50 mcg PO DAILY Qty: 90 0RF cyanocobalamin (vitamin B-12) 1,000 mcg capsule 1,000 mcg PO DAILY Qty: 90 0RF ibuprofen 600 mg tablet 600 mg PO Q6H PRN (Reason: pain) Qty: 30 0RF Referrals: Jose Beck MD [Physician] - (Palpitations) Interventions: ED Discharge Assessment Last Done: 06/23/24 20:47 Discharge Date/Time: 06/23/24 20:48 Print Language: Turkmen
--- NOTE | 2024-06-23 17:40 | ECG_ITS ---
Test Reason : PALPITATION Blood Pressure : / mmHG Vent. Rate : 078 BPM Atrial Rate : 078 BPM P-R Int : 146 ms QRS Dur : 100 ms QT Int : 388 ms P-R-T Axes : 056 051 034 degrees QTc Int : 442 ms Normal sinus rhythm Normal ECG No previous ECGs available Referred By: Danielle Marin Electronically Signed By:ELINA WRIGHT
[2024-06-23 18:04] LABS: MANUAL DIFF FLAG NO
[2024-06-23 18:20] LABS: Basophils Absolute Auto 0.1 X10*3/uL (0.0-0.2); Basophils Percent Auto 0.8 % (0-2); Eosinophils Absolute Auto 0.1 X10*3/uL (0.0-0.4); Eosinophils Percent Auto 0.6 % (0-4); Hematocrit 42.4 % (42.0-52.0); Hemoglobin 15.1 g/dl (14.0-18.0); Imm Gran Abs Auto 0.03 X10*3/uL (0.00-0.03); Imm Gran Pct Auto 0.4 % (0.0-0.4); Lymphocytes Percent Auto 13.1 % (20-40); Mean Corpuscular HGB Conc 35.6 g/dl (31.0-36.0); Mean Corpuscular Hemoglobin 31.3 pg (27.0-33.0); Monocytes Absolute Auto 0.4 X10*3/uL (0.1-1.2); Monocytes Percent Auto 5.3 % (2-11); Neutrophils Absolute Auto 6.2 x10*3/uL (2.0-8.3); Neutrophils Percent Auto 79.8 % (45-73); Platelet Count 285 X10*3/uL (160-400); Red Blood Count 4.82 X10*6/uL (4.60-5.80); Red Cell Distribution Width 12.2 % (11.0-16.0); White Blood Count 7.8 X10*3/uL (4.8-10.8)
[2024-06-23 18:24] LABS: Alanine Aminotransferase 27 U/L (0-40); Albumin Level 4.3 g/dL (3.5-5.0); Alkaline Phosphatase 55 U/L (39-117); Anion Gap 11 (12-20); Aspartate Amino Transferase 28 U/L (5-37); Bilirubin Direct 0.2 mg/dL (0.0-0.5); Bilirubin Total 0.6 mg/dL (0.0-1.0); Blood Urea Nitrogen 11 mg/dL (9-16); Calcium 8.7 mg/dL (8.4-10.2); Carbon Dioxide 23 mmol/L (22-29); Chloride 109 mmol/L (96-108); Creatinine Clr Calc Pharmacy 110.5; Estimated Glomerular Filt Rate > 60; Glucose Random 103 mg/dL (60-115); Magnesium 2.1 mg/dL (1.6-2.6); Potassium 3.9 mmol/L (3.3-5.1); Sodium 139 mmol/L (135-145); Total Protein 6.6 g/dL (6.5-8.0)
[2024-06-23 18:25] LABS: Troponin-I High Sensitivity < 2.7 ng/L (<3.5-35.0)
[2024-06-23 18:39] LABS: TSH reflex Free T4 0.63 uIU/mL (0.32-4.0)
[2024-06-23 18:41] LABS: Influenza A PCR NEGATIVE (Negative); Influenza B PCR NEGATIVE (Negative); Resp Syncy Virus RNA Qual PCR NEGATIVE (Negative); SARS COV2 PCR INHOUSE NEGATIVE (Negative)
[2024-06-23 20:46] VITALS: BP 136/97; PULSE 69; RESP 16; TEMP 36.6; O2SAT 98
[2024-06-23 20:47] VITALS: BP 136/97; PULSE 69; RESP 16; TEMP 36.6; O2SAT 98
== END 2024-06-23 20:48 | disposition home or self-care (01) ==
PROVIDERS: Physician Assistant; Emergency Provider Emergency Medicine
DX: R00.2 Palpitations (principal); R53.83 Other fatigue; Z03.818 Encounter for observation for suspected exposure to other biological agents ruled out
CPT/HCPCS: 0241U; 80048; 80076; 83735; 84443; 84484; 85025; 93005; 99283; 99284

== ENCOUNTER → 2024-06-23 17:40 | Outpatient (BNV) | payer BC, SELFPAY | PROVIDERS: Emergency Provider Emergency Medicine; Visit Provider Internal Medicine | DX: R00.2 Palpitations (principal) | CPT/HCPCS: 93010 ==

== ENCOUNTER 2024-07-10 08:07 | Outpatient (AMB) | payer BC, SELFPAY ==
--- NOTE | 2024-07-10 08:13 | MHC.OFFVIS ---
Vital Signs 07/10/24 08:14 Height 5 ft 11 in Weight 194 lb 7.163 oz BMI 27.1 BP 132/90 H Blood Pressure Location Rt brachial Position Sitting Pulse 87 Pulse Source Pulse Oximeter Intake Visit Reasons: ED follow up/HBP, Nausea and Fatigu Transmission Inspector Required: No Allergies No Known Allergies Allergy (Verified 07/10/24 08:17) Medication List - Last Reconciled 07/10/24 by ALLY Feuntes No Known Home Meds HPI HPI ED follow up/HBP, Nausea and Fatigu: Details: Javi is a 49-year-old male with no significant past medical history who was recently seen in the emergency room with report of heart palpitation and elevated blood pressure readings. His EKG showed normal sinus rhythm, rate 78. His blood pressure was mildly elevated. No significant findings identified. He was referred to Cardiology in follow-up. Today he presents for cardiology consultation. He reports that on the day of the ER visit it was a normal morning and he started with sudden heart palpitations. He could feel his heart beating more rapid and irregularly. It continued throughout the day, causing him concern. He started to notice some mild shortness of breath. His blood pressure at home was elevated at 170 5/120 which prompted his ER evaluation. He states that his symptoms had resolved prior to the EKG that was done in the emergency room. He has not had recurrent heart palpitations since then. He has had palpitations before that time. He does not get chest discomfort at rest or with activity. No shortness of breath, PND, orthopnea or edema. No lightheadedness, presyncope, syncope, falls. He exercises routinely and does a P 90 X program which he says he tolerates well. He has a very remote history of brief smoking. He drinks alcohol only occasionally. He does not drink caffeinated beverages. He eats a well rounded healthy diet including low-salt. He periodically has been checking his blood pressure at home and finds that it is running 140-150/90-100. He does not take any medications at home and is reluctant to start meds at this time. He has a history of panic attacks approximately 3 a year. He states the episode that he had on the day he went to the ER was not a panic attack. He has a family history of coronary artery disease in his father and uncle. No known family history of atrial fibrillation. FORMERLY [facility], 1928–1983 Medical History No known health problems Surgical History Status post laparoscopic appendectomy History of laparoscopic appendectomy Family History Father CVA (cerebral vascular accident) Heart attack Mother No problems noted. Brother No problems noted. Brother No problems noted. Sister No problems noted. Social History Household Members: Spouse Housing: Condominium Do you presently have visiting nurse or other home services: No Unable to assess alcohol history related to: Unknown Patient Tobacco Use Status: Never used Tobacco e-Cigarette/Vaping Use: Never Used Advance Directives Date on File: 09/19/21 service: No Current occupational status: employed Cognitive needs: No Hearing needs: No Vision needs: No Review of Systems Const All systems reviewed & are unremarkable except as noted in HPI and below ENT Denies dizziness Card Denies chest pain, Denies chest pain at rest, Denies chest pain with activity, Denies rapid heart rate, Denies pedal edema, Denies edema, Denies leg edema, Denies lightheadedness, Reports palpitations (One episode that lasted several hours), Denies dyspnea, Denies dyspnea on exertion and Denies orthopnea Resp Denies cough, Denies dyspnea and Denies dyspnea on exertion GI Denies hematochezia and Denies change in stool character Musc Denies abnormal gait, Reports limited range of motion, Reports muscle cramps, Denies muscle weakness, Denies numbness, Denies radiating pain into limb, Denies stiffness and Denies tingling Neuro Denies abnormal gait, Denies dizziness, Denies numbness and Denies tingling Endo Reports palpitations (One episode that lasted several hours) Physical Exam Vital Signs: Last Vital Signs Pulse 87 07/10/24 08:14 BP 132/90 H 07/10/24 08:14 BMI result Body Mass Index 27.1 Const General: cooperative, healthy appearing, comfortable and no acute distress Orientation/consciousness: patient oriented x3 Neck Neck: Yes normal visual inspection and Yes no JVD Carotids: normal carotid upstroke Resp Effort & Inspection: normal respiratory effort Auscultation: clear to auscultation bilaterally, no crackles, no rales, no rhonchi and no wheezes Cardio Rate: regular rate Rhythm: regular rhythm Heart sounds: S1 normal heart sound present, S2 normal heart sound present, no murmurs and no rubs Neuro General: patient oriented x3 Extrem General: Yes normal to inspection, No no pedal edema and No calf tenderness Psych Appearance: grossly normal Mental Status: mental status grossly normal Speech and movement: Normal speech and movement present Assessment & Plan Assessment & Plan (1) Heart palpitations: Code(s): R00.2 - Palpitations Category: Medical Plan: Reported heart palpitations, sudden onset, rapid, irregular lasting several hours with symptom of mild shortness of breath. Once in the ER his symptoms resolved and EKG showed sinus rhythm with normal RI, QRS and QTC intervals, rate 78. He has no cardiac history. No recurrent episodes. Occassional alcohol use - none prior to the episode. No concern for sleep apnea. Does not drink caffinated beverages. Hx of anxiety with rare panic attacks - approx 3 in the past year. He says his episode was not a panic attack. His episode sounds like it could have been PAF with SR with frequent early systoles as he noted it to bee irregular. Will check and echocardiogram to assess atrial sizes and for other structural abnormalities. Will check a 7 day holter monitor to assess for arrythmia. He is agreeable to this plan. Cardiology follow up in 4-6 weeks, sooner if needed. (2) Borderline hypertension: Code(s): R03.0 - Elevated blood-pressure reading, without diagnosis of hypertension Category: Medical Plan: Patient reports that blood pressure has been running mildly elevated over the last year. He periodically checks it at home. Most recent readings have been 140-150/90-100. On the day of his ER visit, prior to arrival he said his home blood pressure did reach 175/120. He uses an automated wrist cuff. In the ER he was noted to have borderline hypertension. Today blood pressure 132/90. He does exercise routinely. He follows a low-salt diet and his weight is controlled. Discuss the possibility of starting low-dose antihypertensive on him and he is reluctant at this time. Will continue to monitor his blood pressure at home and we can discuss further at his next visit. Plan Time spent on chart review, documentation, interview and assessment Orders: Orders ECG 3 day holter monitor Today R00.2 - Palpitations CA echo transthoracic complete Today R00.2 - Palpitations, R03.0 - Elevated blood-pressure reading, without diagnosis of hypertension Coding Level of Care Code New Pt Level 4 (03196) Complex EM visit Add On G2211 Diagnoses Heart palpitations R00.2 Borderline hypertension R03.0 Time Spent (min) 36
[2024-07-10 08:14] VITALS: BP 132/90; PULSE 87; BMI 27.1
== END 2024-07-10 08:51 | disposition home or self-care (01) ==
PROVIDERS: Visit Provider Nurse Practitioner Family
DX: R00.2 Palpitations (principal); R03.0 Elevated blood-pressure reading, without diagnosis of hypertension
CPT/HCPCS: 99204